=== PATIENT | male | born 2000 | race Caucasian/White ===

== ENCOUNTER 2019-02-23 16:25 | Emergency (ER) | payer SELFPAY ==
--- NOTE | 2019-02-23 17:41 | ER Document Report ---
ED Medical Screen (RME) - General Chief Complaint: Testicular Pain Stated Complaint: TESTICLE PAIN Time Seen by Provider: 02/23/19 17:30 - HPI Notes: 02/23/19 17:39 Patient is a 18-year-old male with a varicocele who presents complaining of pain in the area just above his testicle for the past 2 weeks that has been constant. Patient states that he has had surgery in the past. He has been having swelling since he was 15 years old in this area. He is otherwise urinating normally without any concern of STD or STI. Denies DUMONT, fever, neck pain, URI, CP, SOB, Abd pain, dysuria, back pain, or rash. I have treated and performed a rapid initial assessment of this patient. A comprehensive ED assessment and evaluation of the patient, analysis of test results and completion of medical decision making process will be conducted by additional ED providers. PHYSICAL EXAMINATION: GENERAL: Well-appearing, well-nourished and in no acute distress. A&Ox4. Answers questions appropriately. LUNGS: Breath sounds clear to auscultation bilaterally and equal. No wheezes rales or rhonchi. HEART: Regular rate and rhythm without murmurs, rubs, gallops. ABDOMEN: Soft, nondistended abdomen. No guarding, no rebound. Normal bowel sounds present. No CVA tenderness bilaterally. : No urethral discharge, ulceration, or lesion. No erythema or scrotal swelling. No transverse lie. Cremasteric intact. + tenderness left epididymal area. No testicular tenderness. No obvious hernia or lymphadenopathy - Related Data Allergies/Adverse Reactions: beeswax Allergy (Verified 02/23/19 16:29) Past Medical History - Social History Chew tobacco use (# tins/day): No Frequency of alcohol use: None Drug Abuse: None Renal/ Medical History: Denies: Hx Peritoneal Dialysis Past Surgical History: Reports: Hx Genitourinary Surgery - testicular Physical Exam - Vital signs Vitals: Temp Pulse Resp BP Pulse Ox 98.4 F 69 13 126/74 H 99 02/23/19 16:55 02/23/19 16:55 02/23/19 16:55 02/23/19 16:55 02/23/19 16:55 Course - Vital Signs Vital signs: Temp Pulse Resp BP Pulse Ox 98.4 F 69 13 126/74 H 99 02/23/19 16:55 02/23/19 16:55 02/23/19 16:55 02/23/19 16:55 02/23/19 16:55
--- NOTE | 2019-02-23 18:18 | RADIOLOGY REPORT (SQ) ---
EXAM DESCRIPTION: U/S SCROTUM W/DOPPLER COMPLETED DATE/TIME: 02/23/2019 6:09 pm REASON FOR STUDY: left pain COMPARISON: None. TECHNIQUE: Static and realtime gonsales scale imaging of the scrotum and testes. Selected color Doppler and spectral images recorded to document blood flow. LIMITATIONS: None. FINDINGS: RIGHT: TESTICLE: Normal size, 4.1 x 2.7 x 1.8 cm. Normal echotexture. Normal blood flow. No mass. EPIDIDYMIS: Normal. HYDROCELE OR VARICOCELE: No. HERNIA OR EXTRA-TESTICULAR MASS: No. OTHER: No other significant finding. LEFT: TESTICLE: Normal size, 3.9 x 2.4 x 1.8 cm. Normal echotexture. Normal blood flow. No mass. EPIDIDYMIS: Normal. HYDROCELE OR VARICOCELE: Varicocele. HERNIA OR EXTRA-TESTICULAR MASS: No. OTHER: No other significant finding. IMPRESSION: Left side varicocele. The testes are normal. There is blood flow to each. TECHNICAL DOCUMENTATION: JOB ID: [id number] [employer]- All Rights Reserved Reading location - IP/workstation name: [email or web address]
[2019-02-23 18:59] LABS: APPEARANCE,URINE SLIGHTLY-CLOUDY; BILIRUBIN,URINE NEGATIVE (NEGATIVE); COLOR,URINE YELLOW; GLUCOSE, URINE NEGATIVE (NEGATIVE); KETONES,URINE NEGATIVE (NEGATIVE); LEUKOCYTE ESTERASE,URINE NEGATIVE (NEGATIVE); NITRITE,URINE NEGATIVE (NEGATIVE); PROTEIN,URINE NEGATIVE (NEGATIVE); URINE SPECIFIC GRAVITY 1.027; UROBILINOGEN,URINE NEGATIVE mg/dL (<2.0)
[2019-02-23 20:04] LABS: CHLAM PCR NOT DETECTED (NOT DETECT); GON PCR NOT DETECTED (NOT DETECT)
--- NOTE | 2019-02-23 20:24 | ER Document Report ---
ED General - General Chief Complaint: Testicular Pain Stated Complaint: TESTICLE PAIN Time Seen by Provider: 02/23/19 17:30 Notes: Patient is a 18-year-old male that presents to the emergency department for chief complaint of left testicle pain. Patient reports his been having pain in his left testicle over the past 2 weeks, on and off, but it has been worse over the past few days, he states he has a history of testicular varicocele, that he had surgery for in the past, and is not sure if that was happening again. Denies any injury that he is aware. Denies any nausea, vomiting, abdominal pain, currently rates his pain as a 4 out of 10, described as an aching sensation, worse with walking and lifting, denies any other complaints at this time. Past Medical History: Denies chronic medical conditions Past Surgical History: Hernia repair, testicular varicocele surgery Social History: Admits to smoking cigarettes, denies alcohol or drug use. Family History: Reviewed and noncontributory for presenting illness Allergies: Reviewed, see documented allergy list. REVIEW OF SYSTEMS: Other than noted above, the 12 point review of systems was reviewed with the patient and were negative, all pertinent findings are included in the HPI. PHYSICAL EXAMINATION: Vital signs reviewed, nursing noted reviewed. GENERAL: Well-appearing, well-nourished and in no acute distress. HEAD: Atraumatic, normocephalic. EYES: Eyes appear normal, extraocular movements intact, sclera anicteric, conjunctiva are normal. ENT: nares patent, oropharynx clear without exudates. Moist mucous membranes. NECK: Normal range of motion, supple without lymphadenopathy LUNGS: Breath sounds clear to auscultation bilaterally and equal. No wheezes rales or rhonchi. HEART: Regular rate and rhythm without murmurs ABDOMEN: Soft, nontender, normoactive bowel sounds. No rebound, guarding, or rigidity. No masses appreciated. Male genital exam: There is mild tenderness to palpation of the left epididymis, no significant palpable varicocele, both testicles are vertical lie, no testicular or scrotal edema, intact cremasteric reflex bilaterally. EXTREMITIES: Nontender, good range of motion, no pitting or edema. NEUROLOGICAL: No focal neurological deficits. Moves all extremities spontaneously Motor and sensory grossly intact on exam. PSYCH: Normal mood, normal affect. SKIN: Warm, Dry, normal turgor, no rashes or lesions noted on exposed skin - Related Data Allergies/Adverse Reactions: beeswax Allergy (Verified 02/23/19 16:29) Past Medical History - Social History Smoking Status: Current Every Day Smoker Chew tobacco use (# tins/day): No Frequency of alcohol use: None Drug Abuse: None Family History: Reviewed & Not Pertinent Patient has suicidal ideation: No Patient has homicidal ideation: No Renal/ Medical History: Denies: Hx Peritoneal Dialysis Past Surgical History: Reports: Hx Genitourinary Surgery - testicular Physical Exam - Vital signs Vitals: Temp Pulse Resp BP Pulse Ox 98.4 F 69 13 126/74 H 99 02/23/19 16:55 02/23/19 16:55 02/23/19 16:55 02/23/19 16:55 02/23/19 16:55 Course - Re-evaluation Re-evalutation: Patient seen and examined vital signs reviewed. Laboratory data and/or imaging were ordered as appropriate for the patient's presenting symptoms and complaint, with consideration of any critical or life threatening conditions that may be associated with their obtained history and exam as noted above. Patient was treated with IM Toradol 60 mg Results were reviewed when available and demonstrated scrotal ultrasound was positive for left varicocele, with good blood flow to both testicles The patient was re-evaluated and was stable and improved Evaluation was most consistent with left-sided varicocele, advised patient to follow-up with urology, given referrals. Given prescription for naproxen to take at home for pain. Results were discussed with the patient at this point, after careful consideration I feel that that patient can be discharged from the emergency department, the patient was educated treatments and reasons to return to the emergency department based on their presumed diagnosis as noted above, they were advised to followup with a primary care physician in 2-3 days. Patient was agreeable to plan of care. *Note is created using voice recognition software and may contain spelling, syntax or grammatical errors. Laboratory 02/23/19 02/23/19 18:15 18:15 Urine Color YELLOW Urine Appearance SLIGHTLY-CLOUDY Urine pH 7.0 Ur Specific [place] 1.027 Urine Protein NEGATIVE Urine Glucose (UA) NEGATIVE Urine Ketones NEGATIVE Urine Blood NEGATIVE Urine Nitrite NEGATIVE Urine Bilirubin NEGATIVE Urine Urobilinogen NEGATIVE Ur Leukocyte Esterase NEGATIVE Urine WBC (Auto) 0 Urine RBC (Auto) 1 Urine Bacteria (Auto) TRACE Urine Mucus (Auto) FEW Urine Ascorbic Acid NEGATIVE Chlamydia DNA (PCR) NOT DETECTED N.gonorrhoeae DNA (PCR) NOT DETECTED Scrotum Ultrasound 02/23/19 17:38 IMPRESSION: Left side varicocele. The testes are normal. There is blood flow to each. - Vital Signs Vital signs: Temp Pulse Resp BP Pulse Ox 98.1 F 70 16 134/86 H 99 02/23/19 21:03 02/23/19 21:03 02/23/19 21:03 02/23/19 21:03 02/23/19 21:03 Discharge - Discharge Clinical Impression: Varicocele, Testicular pain, left Condition: Stable Disposition: HOME, SELF-CARE Instructions: Testicular Pain ([facility]) Additional Instructions: Your ultrasound demonstrated a varicocele, which it sounds like you had in the past, please follow-up with urology, they have been listed below. In the meantime take the prescribed anti-inflammatories to try to help with the pain. [email or web address] [address] [place] [email or web address] [address] [place] [address] Rob Rao [place] [email or web address] [address] [place] Prescriptions: Naproxen [Naprosyn] 500 mg PO BID PRN #30 tablet PRN Reason: general pain Forms: Return to Work
[2019-02-23] MEDS ORDERED: KETOROLAC TROMETHAMINE 60 MG/2 ML SDV IM ONE (20:38)
[2019-02-23 21:04] VITALS: BP 134/86
== END 2019-02-23 21:07 | disposition home or self-care (01) ==
LOC: ER 16:25
DX: I86.1 Scrotal varices (principal); N50.812 Left testicular pain; F17.210 Nicotine dependence, cigarettes, uncomplicated
CPT/HCPCS: 99284; 96372; 81001; 87491; 87591; 76870; 93976; J1885